=== PATIENT | male | born 1980 | race Caucasian/White ===

== ENCOUNTER 2017-02-14 23:30 | Emergency (ER) | payer OTHER ==
[2017-02-14] MEDS ORDERED: Sodium Chloride 0.9% 10 ML Syringe FLUSH PRN (23:39)
[2017-02-14] MEDS ORDERED: Sodium Chloride 0.9% 1,000 ML IV SCH (23:45)
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
[2017-02-15 01:29] VITALS: BP 144/74
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
== END 2017-02-15 02:51 | disposition home or self-care (01) ==
LOC: JP.ED 23:30
DX: S42.111A Displaced fracture of body of scapula, right shoulder, initial encounter for closed fracture (principal); V19.9XXA Pedal cyclist (driver) (passenger) injured in unspecified traffic accident, initial encounter
CPT/HCPCS: 70450; 73030; 73200; 96360; 99284; J7040; J7050